=== PATIENT | male | born 1960 | race African-American/Black ===

== ENCOUNTER 2019-05-28 14:02 | Inpatient (IN) | payer OTHER ==
[~2019-05-28] VITALS: Ht 180.3 cm; Wt 135.2 kg
[2019-05-28] MEDS ORDERED: SODIUM CHLORIDE 0.9% 1,000 ML IV ONE ×3 (14:25→18:45)
[2019-05-28] MEDS ORDERED: ONDANSETRON HCL 4MG/2ML INJ IV STA (14:25)
[2019-05-28 14:55] LABS: HEMATOCRIT. 32.1 % (42.0-52.0); HEMOGLOBIN. 10.8 g/dL (14.0-18.0); MEAN CORPUSCULAR HEMOGLOBIN 37.3 pg (28.0-32.0); MEAN CORPUSCULAR VOLUME 110.7 fL (80.0-94.0); MEAN PLATELET VOLUME 10.1 fl (7.4-10.4); PLATELET 83 x1000/uL (130-400); RED CELL DISTRIBUTION WIDTH 16.8 % (11.6-14.6)
[2019-05-28 14:58] LABS: CHLORIDE 100 mEq/L (98-107)
[2019-05-28 15:01] LABS: INR 2.6; PROTHROMBIN TIME 26.1 sec (9.6-11.0)
[2019-05-28 15:02] LABS: ETHANOL BLOOD < 10 mg/dL
[2019-05-28] MEDS ORDERED: DEXT 5% WATER 500 ML IV ONE (15:30)
[2019-05-28 17:17] LABS: PLATELET ESTIMATE MARKEDLY DECREASED
[2019-05-28] MEDS ORDERED: KETOROLAC 15MG/ML VIAL IV ONE (18:00)
[2019-05-28] MEDS ORDERED: PIPERACILLIN/TAZ 3.375G PREMIX 50 ML IV ONE (18:45)
[2019-05-28] MEDS ORDERED: DEXTROSE 10% WATER 500 ML IV ONE (18:45)
[2019-05-28] MEDS ORDERED: VANCOMYCIN 1 G PREMIX 200 ML IV ONE (18:45)
[2019-05-28 19:01] LABS: CLARITY URINE CLOUDY (CLEAR); COLOR URINE DARK YELLOW (YELLOW); KETONES URINE TRACE (NEGATIVE); LEUKOCYTE ESTERASE URINE TRACE (NEGATIVE); NITRITE URINE NEGATIVE (NEGATIVE); OCCULT BLOOD URINE TRACE (NEGATIVE); PROTEIN URINE 2+ (NEGATIVE)
[2019-05-28 19:17] LABS: *AMPHETAMINES SCREEN URINE NEGATIVE (NEGATIVE); *BARBITURATES SCREEN URINE NEGATIVE (NEGATIVE); *BENZODIAZEPINES SCREEN URINE NEGATIVE (NEGATIVE); *COCAINE SCREEN URINE NEGATIVE (NEGATIVE)
[2019-05-28 19:18] LABS: CANNABINOID URINE SCREEN NEGATIVE (NEGATIVE); METHADONE URINE SCREEN NEGATIVE (NEGATIVE); OPIATES URINE SCREEN NEGATIVE (NEGATIVE); PHENCYCLIDINE URINE SCREEN NEGATIVE (NEGATIVE)
[2019-05-28 20:00] VITALS: BP 85/58
[2019-05-28] MEDS ORDERED: DOCUSATE SODIUM 100MG CAPSULE PO PRN (21:00)
[2019-05-28] MEDS ORDERED: PIPERACILLIN/TAZ 3.375G PREMIX 50 ML IV SCH (21:00)
[2019-05-28] MEDS ORDERED: LORAZEPAM 2MG/ML CPJ IV PRN (21:00)
[2019-05-28] MEDS ORDERED: ACETAMINOPHEN 325MG TABLET PO PRN (21:00)
[2019-05-28] MEDS ORDERED: CLONIDINE 0.1MG TABLET PO PRN (21:00)
[2019-05-28] MEDS ORDERED: ONDANSETRON HCL 4MG/2ML INJ IV PRN (21:00)
[2019-05-28] MEDS ORDERED: NA PHOS,M-B/NA PHOS,DI-BA ENEMA 118ML PR PRN (21:00)
[2019-05-28] MEDS ORDERED: HYDROCODONE/ACETAMINOPHEN 5/325MG TABLET PO PRN (21:00)
[2019-05-28] MEDS ORDERED: MAGNESIUM/ALUMINUM HYDROXIDE/SIMETHICONE 30ML UDC PO PRN (21:00)
[2019-05-28] MEDS ORDERED: GUAIFENESIN 200MG/10ML SUGAR FREE UDC PO PRN (21:00)
[2019-05-28] MEDS ORDERED: IPRATROPIUM/ALBUTEROL 0.5-3(2.5)MG/3ML NEB NEB PRN (21:00)
[2019-05-28] MEDS ORDERED: ENOXAPARIN 40MG/0.4ML SYR SUBCUT SCH (21:00)
[2019-05-28] MEDS ORDERED: MORPHINE SULFATE 2 MG/ML CPJ (NOT FOR IM USE) IV PRN (21:00)
[2019-05-28 22:00] VITALS: BP 77/45
[2019-05-28] MEDS ORDERED: METRONIDAZOLE 500 MG PREMIX 100 ML IV SCH (22:00)
[2019-05-28] MEDS ORDERED: DEXT 5%/0.45% NACL 1000ML 1,000 ML IV SCH (23:00)
[2019-05-28] MEDS ORDERED: DEXTROSE 50% WATER 50ML SYRINGE IV PRN (23:00)
[2019-05-29] VITALS (64 sets, daily range): BP systolic 68–124; BP diastolic 20–87
[2019-05-29] MEDS ORDERED: LACT10SO6 PO (00:24)
[2019-05-29] MEDS ORDERED: PROP10TA10 PO (00:24)
[2019-05-29] MEDS ORDERED: IBUP-2030 PO (00:27)
[2019-05-29] MEDS ORDERED: P50 PO (00:27)
[2019-05-29] MEDS ORDERED: ATOR40TA70 PO (00:33)
[2019-05-29] MEDS ORDERED: MYCO500T PO (00:33)
[2019-05-29] MEDS ORDERED: PROP20TA7 PO (00:33)
[2019-05-29] MEDS ORDERED: LEVO25TA7 PO (00:38)
[2019-05-29] MEDS ORDERED: RIFA550T PO (00:38)
[2019-05-29] MEDS ORDERED: BENZ100C86 PO (00:39)
[2019-05-29] MEDS: METRONIDAZOLE 500 MG PREMIX 100 ML IV SCH ×3 (00:52→18:01)
[2019-05-29] MEDS: DEXT 5%/0.9% NACL 1,000 ML IV SCH ×2 (00:52→16:53)
[2019-05-29] MEDS: PIPERACILLIN/TAZOBACTAM 2.25 G in DEXTROSE 5% WATER 50 ML IV SCH ×2 (00:52→09:18)
[2019-05-29 04:15] LABS: HEMATOCRIT. 28.3 % (42.0-52.0); HEMOGLOBIN. 9.7 g/dL (14.0-18.0); MEAN CORPUSCULAR HEMOGLOBIN 37.1 pg (28.0-32.0); MEAN CORPUSCULAR VOLUME 108.1 fL (80.0-94.0); MEAN PLATELET VOLUME 9.7 fl (7.4-10.4); PLATELET 70 x1000/uL (130-400); RED BLOOD CELL COUNT 2.62 mill/uL (4.7-6.1); RED CELL DISTRIBUTION WIDTH 16.6 % (11.6-14.6)
[2019-05-29 04:19] LABS: CHLORIDE 99 mEq/L (98-107); INR 2.9; PROTHROMBIN TIME 28.7 sec (9.6-11.0)
[2019-05-29 04:27] LABS: LDL CHOLESTEROL 43 mg/dL (5-100)
[2019-05-29 04:28] LABS: HDL CHOLESTEROL 7 mg/dL (40-59); T4 FREE 1.23 ng/dL (0.76-1.46)
[2019-05-29] MEDS: BLOOD SUGAR DIAGNOSTIC STRIP TEST SCH ×4 (07:30→21:08)
[2019-05-29] MEDS ORDERED: HALOPERIDOL LACTATE 5MG/ML VIAL IM PRN (07:52)
[2019-05-29] MEDS: INSULIN LISPRO 100 UNITS/ML SUBCUT SCH ×3 (08:00→21:00)
[2019-05-29 08:04] LABS: PLATELET ESTIMATE DECREASED
[2019-05-29] MEDS ORDERED: DIPHENHYDRAMINE 50MG/ML VIAL IV NR (11:45)
[2019-05-29] MEDS: SODIUM CHLORIDE 0.9% 500 ML IV NR ×2 (11:49→13:00)
[2019-05-29 11:53] LABS: CREATINE KINASE 1606 IU/L (39-308)
[2019-05-29] MEDS: PHENYLEPHRINE 10 MG in DEXT 5% WATER 249 ML IV PRN ×2 (13:26→16:13)
[2019-05-29] MEDS: DIPHENHYDRAMINE 50MG/ML VIAL IV PRN ×2 (15:05→22:16)
[2019-05-29] MEDS: CHLORDIAZEPOXIDE 25MG CAPSULE PO SCH ×2 (15:56→21:07)
[2019-05-29 16:12] LABS: CREATINE KINASE MB FRACTION 9.9 ng/mL (0.5-3.6)
[2019-05-29] MEDS: CEFTRIAXONE 1 G PREMIX 50 ML IV SCH (16:55)
[2019-05-29] MEDS ORDERED: POTASSIUM CHLORIDE 20MEQ TABLET SR PO NR (17:00)
[2019-05-29 17:14] LABS: HEPATITIS B SURFACE ANTIGEN NEGATIVE
[2019-05-29 17:43] LABS: HEPATITIS A AB IGM NEGATIVE (NEGATIVE)
[2019-05-29] MEDS ORDERED: PHENYLEPHRINE 20 MG in DEXT 5% WATER 248 ML IV PRN (18:00)
[2019-05-29] MEDS ORDERED: FOLIC ACID 1 MG, THIAMINE HCL 100 MG, MVI, ADULT NO.1 10 ML in DEXTROSE 5% WATER 1,000 ML IV SCH ×4 (18:00)
[2019-05-29] MEDS ORDERED: PHENYLEPHRINE 40 MG in DEXT 5% WATER 496 ML IV PRN (20:00)
[2019-05-29] MEDS ORDERED: NOREPINEPHRINE 16 MG in DEXT 5% WATER 234 ML IV PRN (20:26)
[2019-05-29] MEDS: RIFAXIMIN 550 MG TABLET PO SCH (21:07)
[2019-05-29] MEDS: NYSTATIN POWDER 15GM TOP SCH (21:08)
[2019-05-29] MEDS ORDERED: ALBUMIN HUMAN 12.5GM/50ML (25%) IV NR (21:30)
[2019-05-29 21:52] LABS: BG BASE EXCESS -7.1 mmol/L (-2.0-2.0); BG CARBOXYHEMOGLOBIN 0.3 % (0.5-1.5); BG FRACTION INSPIRED OXYGEN 28; BG HCO3 ACT 17.5 mmol/L (22.0-26.0); BG METHEMOGLOBIN 0.2 % (0.0-1.5); BG OXYHEMOGLOBIN 93.5 % (94.0-97.0); BG PCO2 32.5 mmHg (35.0-45.0); BG PH 7.349 (7.350-7.450); BG PO2 77.7 mmHg (75.0-100.0); BG SAMPLE SITE RIGHT RADIAL; BG TOTAL HEMOGLOBIN 11.8 g/dL (12.0-18.0); BG VENT MODE NASAL CANNULA
[2019-05-29] MEDS: PHENYLEPHRINE 80 MG in DEXT 5% WATER 492 ML IV PRN (23:51)
[2019-05-29 23:54] LABS: CREATINE KINASE MB FRACTION 6.7 ng/mL (0.5-3.6)
[2019-05-30] VITALS (96 sets, daily range): BP systolic 24–153; BP diastolic 13–128
[2019-05-30] MEDS: DEXT 5%/0.9% NACL 1,000 ML IV SCH ×6 (01:23→23:48)
[2019-05-30] MEDS: DIPHENHYDRAMINE 50MG/ML VIAL IV PRN (02:10)
[2019-05-30] MEDS: METRONIDAZOLE 500 MG PREMIX 100 ML IV SCH ×2 (05:16→17:48)
[2019-05-30] MEDS: CHLORDIAZEPOXIDE 25MG CAPSULE PO SCH ×3 (05:16→21:13)
[2019-05-30 06:00] LABS: BASOPHILS % 0.3 % (0.0-2.0); EOSINOPHILS % 1.1 % (0.0-5.0); HEMATOCRIT. 27.9 % (42.0-52.0); HEMOGLOBIN. 9.6 g/dL (14.0-18.0); LYMPHOCYTES % 22.8 % (20.0-50.0); MEAN CORPUSCULAR HEMOGLOBIN 37.3 pg (28.0-32.0); MEAN CORPUSCULAR VOLUME 108.4 fL (80.0-94.0); MEAN PLATELET VOLUME 9.6 fl (7.4-10.4); MONOCYTES % 6.9 % (2.0-8.0); NEUTROPHILS % 68.9 % (40.0-76.0); PLATELET 83 x1000/uL (130-400); RED BLOOD CELL COUNT 2.57 mill/uL (4.7-6.1); RED CELL DISTRIBUTION WIDTH 16.6 % (11.6-14.6)
[2019-05-30] MEDS: PHENYLEPHRINE 80 MG in DEXT 5% WATER 492 ML IV PRN ×2 (06:10→15:19)
[2019-05-30] MEDS: INSULIN LISPRO 100 UNITS/ML SUBCUT SCH ×4 (06:21→21:00)
[2019-05-30] MEDS: BLOOD SUGAR DIAGNOSTIC STRIP TEST SCH ×4 (06:21→21:14)
[2019-05-30 06:38] LABS: CREATINE KINASE MB FRACTION 5.3 ng/mL (0.5-3.6)
[2019-05-30 08:11] LABS: BG BASE EXCESS -8.7 mmol/L (-2.0-2.0); BG CARBOXYHEMOGLOBIN 0.3 % (0.5-1.5); BG DEOXYHEMOGLOBIN 6.5 % (0.0-5.0); BG FRACTION INSPIRED OXYGEN 36; BG HCO3 ACT 15.8 mmol/L (22.0-26.0); BG METHEMOGLOBIN 0.2 % (0.0-1.5); BG OXYGEN SATURATION 93.5 % (92.0-98.5); BG PCO2 29.3 mmHg (35.0-45.0); BG PH 7.349 (7.350-7.450); BG PO2 78.4 mmHg (75.0-100.0); BG SAMPLE SITE RIGHT RADIAL; BG TOTAL HEMOGLOBIN 10.5 g/dL (12.0-18.0); BG VENT MODE NASAL CANNULA
[2019-05-30] MEDS: NYSTATIN POWDER 15GM TOP SCH ×2 (08:52→21:13)
[2019-05-30] MEDS: RIFAXIMIN 550 MG TABLET PO SCH ×2 (08:52→21:13)
[2019-05-30] MEDS ORDERED: KCL 20MEQ/100ML PREMIX 100 ML IV NR (10:00)
[2019-05-30] MEDS: FOLIC ACID/VITAMIN B COMP W-C TABLET PO SCH (15:30)
[2019-05-30] MEDS ORDERED: LIDOCAINE HCL/PF 1% 2ML VIAL ONE (16:01)
[2019-05-30] MEDS: MULTIVITAMINS,THER W-MINERALS TABLET PO SCH (16:34)
[2019-05-30] MEDS: THIAMINE HCL 100MG TABLET PO SCH (16:34)
[2019-05-30] MEDS: CEFTRIAXONE 1 G PREMIX 50 ML IV SCH (16:35)
[2019-05-31] VITALS (96 sets, daily range): BP systolic 69–159; BP diastolic 22–99
[2019-05-31] MEDS: PHENYLEPHRINE 80 MG in DEXT 5% WATER 492 ML IV PRN ×2 (00:02→13:03)
[2019-05-31] MEDS: DIPHENHYDRAMINE 50MG/ML VIAL IV PRN (00:38)
[2019-05-31] MEDS: METRONIDAZOLE 500 MG PREMIX 100 ML IV SCH ×2 (05:45→18:24)
[2019-05-31] MEDS: CHLORDIAZEPOXIDE 25MG CAPSULE PO SCH (05:46)
[2019-05-31] MEDS: BLOOD SUGAR DIAGNOSTIC STRIP TEST SCH ×4 (05:46→21:10)
[2019-05-31] MEDS: DEXT 5%/0.9% NACL 1,000 ML IV SCH ×3 (06:09→13:13)
[2019-05-31] MEDS: INSULIN LISPRO 100 UNITS/ML SUBCUT SCH ×4 (06:10→21:00)
[2019-05-31 08:36] LABS: HEMATOCRIT 25.4 % (42.0-52.0); HEMOGLOBIN 8.8 g/dL (14.0-18.0)
[2019-05-31] MEDS: THIAMINE HCL 100MG TABLET PO SCH (08:37)
[2019-05-31] MEDS: FOLIC ACID/VITAMIN B COMP W-C TABLET PO SCH (08:37)
[2019-05-31] MEDS: RIFAXIMIN 550 MG TABLET PO SCH ×2 (08:37→20:55)
[2019-05-31] MEDS: MULTIVITAMINS,THER W-MINERALS TABLET PO SCH (08:37)
[2019-05-31] MEDS: NYSTATIN POWDER 15GM TOP SCH ×2 (09:00→21:10)
[2019-05-31] MEDS: PANTOPRAZOLE SODIUM 40 MG/VIAL IV SCH ×2 (12:11→17:34)
[2019-05-31] MEDS: OCTREOTIDE 1,000 MCG in SODIUM CHLORIDE 0.9% 98 ML IV SCH (13:02)
[2019-05-31] MEDS: CITRIC ACID/SODIUM CITRATE SOLN 30ML UDC PO SCH ×2 (13:33→17:00)
[2019-05-31 14:49] LABS: MEAN CORPUSCULAR HEMOGLOBIN 38.4 pg (28.0-32.0); MEAN CORPUSCULAR VOLUME 111.2 fL (80.0-94.0); MEAN PLATELET VOLUME 9.7 fl (7.4-10.4); PLATELET 71 x1000/uL (130-400); RED BLOOD CELL COUNT 1.96 mill/uL (4.7-6.1); RED CELL DISTRIBUTION WIDTH 16.7 % (11.6-14.6)
[2019-05-31 14:51] LABS: INR 2.8
[2019-05-31 14:53] LABS: HEMATOCRIT. 21.8 % (42.0-52.0); HEMOGLOBIN. 7.5 g/dL (14.0-18.0)
[2019-05-31 15:12] LABS: PLATELET ESTIMATE DECREASED
[2019-05-31] MEDS: LACTULOSE 300 ML in WATER FOR IRRIGATION,STERILE 700 ML IR SCH (17:00)
[2019-05-31] MEDS: CEFTRIAXONE 1 G PREMIX 50 ML IV SCH (17:45)
[2019-06-01] VITALS (119 sets, daily range): BP systolic 64–185; BP diastolic 22–103
[2019-06-01] MEDS: PHENYLEPHRINE 80 MG in DEXT 5% WATER 492 ML IV PRN ×2 (00:39→14:27)
[2019-06-01 05:41] LABS: MEAN CORPUSCULAR HEMOGLOBIN 38.1 pg (28.0-32.0); MEAN CORPUSCULAR VOLUME 110.4 fL (80.0-94.0); MEAN PLATELET VOLUME 9.7 fl (7.4-10.4); PLATELET 70 x1000/uL (130-400); RED CELL DISTRIBUTION WIDTH 16.6 % (11.6-14.6)
[2019-06-01] MEDS: BLOOD SUGAR DIAGNOSTIC STRIP TEST SCH ×4 (06:03→20:54)
[2019-06-01] MEDS: INSULIN LISPRO 100 UNITS/ML SUBCUT SCH ×4 (06:04→20:54)
[2019-06-01] MEDS: DEXT 5%/0.9% NACL 1,000 ML IV SCH ×4 (06:10→23:57)
[2019-06-01] MEDS: METRONIDAZOLE 500 MG PREMIX 100 ML IV SCH ×2 (06:10→18:24)
[2019-06-01 06:35] LABS: HEMOGLOBIN. 6.1 g/dL (14.0-18.0)
[2019-06-01 06:36] LABS: HEMATOCRIT. 17.7 % (42.0-52.0)
[2019-06-01] MEDS: CITRIC ACID/SODIUM CITRATE SOLN 30ML UDC PO SCH ×3 (08:54→17:00)
[2019-06-01] MEDS: RIFAXIMIN 550 MG TABLET PO SCH ×2 (08:54→20:13)
[2019-06-01] MEDS: LACTULOSE 300 ML in WATER FOR IRRIGATION,STERILE 700 ML IR SCH (09:00)
[2019-06-01] MEDS: NYSTATIN POWDER 15GM TOP SCH ×2 (09:00→21:12)
[2019-06-01] MEDS: OCTREOTIDE 1,000 MCG in SODIUM CHLORIDE 0.9% 98 ML IV SCH (09:01)
[2019-06-01] MEDS: PANTOPRAZOLE SODIUM 40 MG/VIAL IV SCH ×2 (09:04→17:45)
[2019-06-01 10:14] LABS: NUCLEATED RED BLOOD CELLS 2 /100 WBC; PLATELET ESTIMATE DECREASED
[2019-06-01] MEDS ORDERED: PHYTONADIONE 10MG/ML AMP SUBCUT ONE (10:15)
[2019-06-01] MEDS ORDERED: VASOPRESSIN 10 UNIT in SODIUM CHLORIDE 0.9% 99.5 ML IV PRN (10:15)
[2019-06-01] MEDS ORDERED: SODIUM CHLORIDE 0.9% 10ML VIAL ONE (10:48)
[2019-06-01] MEDS ORDERED: VECURONIUM BROMIDE 10 MG/VIAL IV ONE (10:48)
[2019-06-01] MEDS ORDERED: ETOMIDATE 2MG/ML 10ML VIAL IV ONE (10:48)
[2019-06-01 11:15] LABS: BG BASE EXCESS -12.3 mmol/L (-2.0-2.0); BG CARBOXYHEMOGLOBIN 0.8 % (0.5-1.5); BG DEOXYHEMOGLOBIN 0.4 % (0.0-5.0); BG FRACTION INSPIRED OXYGEN 100; BG HCO3 ACT 14.4 mmol/L (22.0-26.0); BG METHEMOGLOBIN 0.5 % (0.0-1.5); BG OXYGEN SATURATION 99.6 % (92.0-98.5); BG OXYHEMOGLOBIN 98.3 % (94.0-97.0); BG PCO2 36.3 mmHg (35.0-45.0); BG PH 7.215 (7.350-7.450); BG PO2 278.6 mmHg (75.0-100.0); BG SAMPLE SITE RIGHT RADIAL; BG TIDAL VOLUME(mL) 500 mL; BG TOTAL HEMOGLOBIN 6.4 g/dL (12.0-18.0); BG VENT MODE VENT - A/C; BG VENT RATE 16 set
[2019-06-01] MEDS ORDERED: SODIUM BICARBONATE 8.4% 1 MEQ/ML 50ML SYR IV SCH (11:20)
[2019-06-01] MEDS: IPRATROPIUM BROMIDE (0.02%) 0.5MG/2.5ML NEB HHN SCH ×3 (11:36→20:38)
[2019-06-01] MEDS: FENTANYL CITRATE/PF 500 MCG in SODIUM CHLORIDE 0.9% 40 ML IV PRN ×3 (12:48→23:57)
[2019-06-01] MEDS ORDERED: MIDAZOLAM HCL 5 MG/5 ML VIAL ONE (15:20)
[2019-06-01] MEDS ORDERED: SIMETHICONE 40 MG/0.6 ML 30ML ONE (15:20)
[2019-06-01] MEDS ORDERED: FENTANYL CITRATE/PF 50MCG/ML 2ML VIAL ONE (15:21)
[2019-06-01] MEDS: CEFTRIAXONE 1 G PREMIX 50 ML IV SCH (18:13)
[2019-06-01 19:38] LABS: HEMATOCRIT 26.9 % (42.0-52.0)
[2019-06-02] VITALS (95 sets, daily range): BP systolic 91–117; BP diastolic 48–68
[2019-06-02] MEDS: IPRATROPIUM BROMIDE (0.02%) 0.5MG/2.5ML NEB HHN SCH ×4 (02:02→20:00)
[2019-06-02] MEDS: METRONIDAZOLE 500 MG PREMIX 100 ML IV SCH ×2 (05:55→17:38)
[2019-06-02] MEDS: BLOOD SUGAR DIAGNOSTIC STRIP TEST SCH ×4 (05:55→20:42)
[2019-06-02] MEDS: INSULIN LISPRO 100 UNITS/ML SUBCUT SCH ×4 (06:07→20:51)
[2019-06-02] MEDS: DEXT 5%/0.9% NACL 1,000 ML IV SCH ×2 (06:15→10:09)
[2019-06-02] MEDS: OCTREOTIDE 1,000 MCG in SODIUM CHLORIDE 0.9% 98 ML IV SCH (07:33)
[2019-06-02] MEDS: PHENYLEPHRINE 80 MG in DEXT 5% WATER 492 ML IV PRN (07:36)
[2019-06-02] MEDS: RIFAXIMIN 550 MG TABLET PO SCH ×2 (08:25→20:11)
[2019-06-02] MEDS: LACTULOSE 300 ML in WATER FOR IRRIGATION,STERILE 700 ML IR SCH (08:26)
[2019-06-02] MEDS: CITRIC ACID/SODIUM CITRATE SOLN 30ML UDC PO SCH ×3 (08:27→17:00)
[2019-06-02] MEDS: PANTOPRAZOLE SODIUM 40 MG/VIAL IV SCH ×2 (08:27→17:38)
[2019-06-02 08:36] LABS: BG BASE EXCESS -9.8 mmol/L (-2.0-2.0); BG CARBOXYHEMOGLOBIN 1.2 % (0.5-1.5); BG FRACTION INSPIRED OXYGEN 40; BG HCO3 ACT 14.8 mmol/L (22.0-26.0); BG METHEMOGLOBIN 0.3 % (0.0-1.5); BG OXYGEN SATURATION 95.9 % (92.0-98.5); BG OXYHEMOGLOBIN 94.5 % (94.0-97.0); BG PCO2 27.5 mmHg (35.0-45.0); BG PH 7.349 (7.350-7.450); BG PO2 91.5 mmHg (75.0-100.0); BG SAMPLE SITE RIGHT RADIAL; BG TIDAL VOLUME(mL) 500 mL; BG TOTAL HEMOGLOBIN 7.2 g/dL (12.0-18.0); BG VENT MODE VENT - A/C; BG VENT RATE 18 set
[2019-06-02] MEDS: NYSTATIN POWDER 15GM TOP SCH ×2 (10:09→20:43)
[2019-06-02] MEDS: FENTANYL CITRATE/PF 500 MCG in SODIUM CHLORIDE 0.9% 40 ML IV PRN ×2 (10:10→20:42)
[2019-06-02 14:23] LABS: HEMATOCRIT. 22.2 % (42.0-52.0); HEMOGLOBIN. 7.9 g/dL (14.0-18.0); MEAN CORPUSCULAR HEMOGLOBIN 37.4 pg (28.0-32.0); MEAN CORPUSCULAR VOLUME 105.2 fL (80.0-94.0); RED BLOOD CELL COUNT 2.11 mill/uL (4.7-6.1); RED CELL DISTRIBUTION WIDTH 21.4 % (11.6-14.6)
[2019-06-02 16:20] LABS: MEAN PLATELET VOLUME 9.6 fl (7.4-10.4); PLATELET 82 x1000/uL (130-400)
[2019-06-02 16:22] LABS: NUCLEATED RED BLOOD CELLS 1 /100 WBC; PLATELET ESTIMATE DECREASED
[2019-06-02] MEDS: CEFTRIAXONE 1 G PREMIX 50 ML IV SCH (17:28)
[2019-06-02 18:33] LABS: CREATINE KINASE 287 IU/L (39-308)
[2019-06-02 23:58] LABS: HEMATOCRIT 25.7 % (42.0-52.0); HEMOGLOBIN 8.9 g/dL (14.0-18.0)
[2019-06-03] VITALS (102 sets, daily range): BP systolic 87–129; BP diastolic 44–64
[2019-06-03] MEDS: IPRATROPIUM BROMIDE (0.02%) 0.5MG/2.5ML NEB HHN SCH ×4 (01:42→20:30)
[2019-06-03] MEDS: OCTREOTIDE 1,000 MCG in SODIUM CHLORIDE 0.9% 98 ML IV SCH (02:32)
[2019-06-03] MEDS: DEXT 5%/0.9% NACL 1,000 ML IV SCH (04:22)
[2019-06-03] MEDS: METRONIDAZOLE 500 MG PREMIX 100 ML IV SCH ×2 (05:09→17:12)
[2019-06-03 05:43] LABS: BASOPHILS % 0.4 % (0.0-2.0); HEMATOCRIT. 21.2 % (42.0-52.0); HEMOGLOBIN. 7.4 g/dL (14.0-18.0); LYMPHOCYTES % 23.2 % (20.0-50.0); MEAN CORPUSCULAR HEMOGLOBIN 36.8 pg (28.0-32.0); MEAN CORPUSCULAR VOLUME 105.5 fL (80.0-94.0); MONOCYTES % 10.6 % (2.0-8.0); NEUTROPHILS % 64.8 % (40.0-76.0); RED BLOOD CELL COUNT 2.01 mill/uL (4.7-6.1); RED CELL DISTRIBUTION WIDTH 21.7 % (11.6-14.6)
[2019-06-03] MEDS: BLOOD SUGAR DIAGNOSTIC STRIP TEST SCH ×4 (05:47→22:18)
[2019-06-03 05:54] LABS: PHOSPHORUS 5.2 mg/dL (2.5-4.9)
[2019-06-03] MEDS: INSULIN LISPRO 100 UNITS/ML SUBCUT SCH ×4 (06:53→21:00)
[2019-06-03 07:37] LABS: PLATELET 90 x1000/uL (130-400)
[2019-06-03] MEDS: SODIUM BICARBONATE 100 MEQ in DEXTROSE 5% WATER 1,000 ML IV SCH (07:55)
[2019-06-03] MEDS: FENTANYL CITRATE/PF 500 MCG in SODIUM CHLORIDE 0.9% 40 ML IV PRN ×3 (07:56→22:28)
[2019-06-03 08:20] LABS: BG BASE EXCESS -12.1 mmol/L (-2.0-2.0); BG DEOXYHEMOGLOBIN 4.2 % (0.0-5.0); BG FRACTION INSPIRED OXYGEN 40; BG HCO3 ACT 13.6 mmol/L (22.0-26.0); BG METHEMOGLOBIN 0.3 % (0.0-1.5); BG OXYGEN SATURATION 95.7 % (92.0-98.5); BG OXYHEMOGLOBIN 94.5 % (94.0-97.0); BG PH 7.275 (7.350-7.450); BG PO2 88.9 mmHg (75.0-100.0); BG SAMPLE SITE RIGHT RADIAL; BG TIDAL VOLUME(mL) 500 mL; BG TOTAL HEMOGLOBIN 7.6 g/dL (12.0-18.0); BG VENT MODE VENT - A/C; BG VENT RATE 18 set
[2019-06-03] MEDS: RIFAXIMIN 550 MG TABLET PO SCH ×2 (09:00→21:00)
[2019-06-03] MEDS: CITRIC ACID/SODIUM CITRATE SOLN 30ML UDC PO SCH ×3 (09:00→17:00)
[2019-06-03] MEDS: LACTULOSE 300 ML in WATER FOR IRRIGATION,STERILE 700 ML IR SCH (09:11)
[2019-06-03] MEDS: PANTOPRAZOLE SODIUM 40 MG/VIAL IV SCH ×2 (09:11→16:56)
[2019-06-03] MEDS: NYSTATIN POWDER 15GM TOP SCH ×2 (09:12→22:18)
[2019-06-03] MEDS ORDERED: LACTULOSE 300 ML in WATER FOR IRRIGATION,STERILE 700 ML IR PRN (11:45)
[2019-06-03 14:50] LABS: HEMATOCRIT 23.3 % (42.0-52.0)
[2019-06-03] MEDS: CEFTRIAXONE 1 G PREMIX 50 ML IV SCH (16:56)
[2019-06-03] MEDS: POLYVINYL ALCOHOL OPHTH DROPS 15ML BOTHEYE PRN ×2 (16:56→17:11)
[2019-06-03] MEDS ORDERED: MAGNESIUM 2 G PREMIX 50 ML IV NR (20:30)
[2019-06-03 23:45] LABS: HEMATOCRIT 23.6 % (42.0-52.0)
[2019-06-04] VITALS (92 sets, daily range): BP systolic 83–121; BP diastolic 35–71
[2019-06-04] MEDS: OCTREOTIDE 1,000 MCG in SODIUM CHLORIDE 0.9% 98 ML IV SCH ×2 (01:46→21:32)
[2019-06-04] MEDS: SODIUM BICARBONATE 100 MEQ in DEXTROSE 5% WATER 1,000 ML IV SCH (01:46)
[2019-06-04] MEDS: PHENYLEPHRINE 80 MG in DEXT 5% WATER 492 ML IV PRN ×3 (01:47→20:00)
[2019-06-04] MEDS: IPRATROPIUM BROMIDE (0.02%) 0.5MG/2.5ML NEB HHN SCH ×4 (02:18→21:09)
[2019-06-04] MEDS: METRONIDAZOLE 500 MG PREMIX 100 ML IV SCH ×2 (05:24→18:41)
[2019-06-04] MEDS: FENTANYL CITRATE/PF 500 MCG in SODIUM CHLORIDE 0.9% 40 ML IV PRN ×4 (05:25→21:32)
[2019-06-04] MEDS: BLOOD SUGAR DIAGNOSTIC STRIP TEST SCH ×4 (06:13→21:07)
[2019-06-04] MEDS: INSULIN LISPRO 100 UNITS/ML SUBCUT SCH ×4 (06:13→21:00)
[2019-06-04 06:44] LABS: BASOPHILS % 0.8 % (0.0-2.0); EOSINOPHILS % 1.3 % (0.0-5.0); HEMATOCRIT. 22.7 % (42.0-52.0); HEMOGLOBIN. 7.8 g/dL (14.0-18.0); LYMPHOCYTES % 21.4 % (20.0-50.0); MEAN CORPUSCULAR HEMOGLOBIN 35.3 pg (28.0-32.0); MEAN CORPUSCULAR VOLUME 103.2 fL (80.0-94.0); MEAN PLATELET VOLUME 9.6 fl (7.4-10.4); MONOCYTES % 10.4 % (2.0-8.0); NEUTROPHILS % 66.1 % (40.0-76.0); PLATELET 105 x1000/uL (130-400); RED CELL DISTRIBUTION WIDTH 20.3 % (11.6-14.6)
[2019-06-04] MEDS: NOREPINEPHRINE 32 MG in DEXT 5% WATER 468 ML IV PRN (07:09)
[2019-06-04 08:42] LABS: BG BASE EXCESS -11.1 mmol/L (-2.0-2.0); BG CARBOXYHEMOGLOBIN 1.2 % (0.5-1.5); BG DEOXYHEMOGLOBIN 3.3 % (0.0-5.0); BG FRACTION INSPIRED OXYGEN 40; BG HCO3 ACT 14.7 mmol/L (22.0-26.0); BG METHEMOGLOBIN 0.3 % (0.0-1.5); BG OXYGEN SATURATION 96.6 % (92.0-98.5); BG OXYHEMOGLOBIN 95.2 % (94.0-97.0); BG PCO2 32.3 mmHg (35.0-45.0); BG PH 7.275 (7.350-7.450); BG PO2 95.8 mmHg (75.0-100.0); BG SAMPLE SITE RIGHT RADIAL; BG TIDAL VOLUME(mL) 500 mL; BG TOTAL HEMOGLOBIN 7.6 g/dL (12.0-18.0); BG VENT MODE VENT - A/C; BG VENT RATE 22 set
[2019-06-04] MEDS: RIFAXIMIN 550 MG TABLET PO SCH ×2 (09:00→21:00)
[2019-06-04] MEDS: CITRIC ACID/SODIUM CITRATE SOLN 30ML UDC PO SCH (09:00)
[2019-06-04 09:02] LABS: VITAMIN B12 SERUM >2000 pg/mL pg/mL (211-911)
[2019-06-04] MEDS: NYSTATIN POWDER 15GM TOP SCH ×2 (09:33→21:33)
[2019-06-04] MEDS: PANTOPRAZOLE SODIUM 40 MG/VIAL IV SCH ×2 (09:33→18:40)
[2019-06-04 10:18] LABS: INR 2.5; PROTHROMBIN TIME 26.7 sec (9.6-11.0)
[2019-06-04] MEDS ORDERED: PHYTONADIONE 10MG/ML AMP SUBCUT NR (11:00)
[2019-06-04] MEDS: LACTULOSE 300 ML in WATER FOR IRRIGATION,STERILE 700 ML IR SCH (11:43)
[2019-06-04 12:35] LABS: HEMATOCRIT 23.1 % (42.0-52.0); HEMOGLOBIN 7.8 g/dL (14.0-18.0)
[2019-06-04] MEDS: CEFTAZIDIME PENTAHYDRATE 1 G in DEXTROSE 5% WATER 50 ML IV SCH (18:40)
[2019-06-05] VITALS (93 sets, daily range): BP systolic 77–150; BP diastolic 39–137
[2019-06-05] MEDS: FENTANYL CITRATE/PF 500 MCG in SODIUM CHLORIDE 0.9% 40 ML IV PRN ×3 (02:23→22:30)
[2019-06-05] MEDS: IPRATROPIUM BROMIDE (0.02%) 0.5MG/2.5ML NEB HHN SCH ×4 (04:48→20:13)
[2019-06-05 05:43] LABS: BASOPHILS % 0.5 % (0.0-2.0); EOSINOPHILS % 1.2 % (0.0-5.0); LYMPHOCYTES % 18.8 % (20.0-50.0); MEAN CORPUSCULAR HEMOGLOBIN 36.5 pg (28.0-32.0); NEUTROPHILS % 68.5 % (40.0-76.0); RED BLOOD CELL COUNT 2.48 mill/uL (4.7-6.1); RED CELL DISTRIBUTION WIDTH 20.1 % (11.6-14.6)
[2019-06-05] MEDS: METRONIDAZOLE 500 MG PREMIX 100 ML IV SCH ×2 (05:47→18:40)
[2019-06-05] MEDS: PHENYLEPHRINE 80 MG in DEXT 5% WATER 492 ML IV PRN ×2 (05:48→16:03)
[2019-06-05] MEDS: INSULIN LISPRO 100 UNITS/ML SUBCUT SCH ×4 (06:28→21:00)
[2019-06-05] MEDS: BLOOD SUGAR DIAGNOSTIC STRIP TEST SCH ×4 (06:28→21:22)
[2019-06-05] MEDS: RIFAXIMIN 550 MG TABLET PO SCH ×2 (08:12→21:00)
[2019-06-05] MEDS: LACTULOSE 300 ML in WATER FOR IRRIGATION,STERILE 700 ML IR SCH (09:08)
[2019-06-05] MEDS: PANTOPRAZOLE SODIUM 40 MG/VIAL IV SCH ×2 (09:08→18:40)
[2019-06-05] MEDS: NYSTATIN POWDER 15GM TOP SCH ×2 (09:09→21:22)
[2019-06-05 09:28] LABS: BG BASE EXCESS -5.1 mmol/L (-2.0-2.0); BG CARBOXYHEMOGLOBIN 0.6 % (0.5-1.5); BG DEOXYHEMOGLOBIN 5.6 % (0.0-5.0); BG FRACTION INSPIRED OXYGEN 40; BG HCO3 ACT 19.6 mmol/L (22.0-26.0); BG OXYGEN SATURATION 94.4 % (92.0-98.5); BG OXYHEMOGLOBIN 93.8 % (94.0-97.0); BG PH 7.367 (7.350-7.450); BG PO2 75.9 mmHg (75.0-100.0); BG SAMPLE SITE RIGHT RADIAL; BG TIDAL VOLUME(mL) 500 mL; BG TOTAL HEMOGLOBIN 10.1 g/dL (12.0-18.0); BG VENT MODE VENT - A/C; BG VENT RATE 22 set
[2019-06-05] MEDS: DEXTROSE 10% WATER 500 ML IV SCH (10:45)
[2019-06-05 11:10] LABS: PLATELET 102 x1000/uL (130-400)
[2019-06-05] MEDS ORDERED: PHYTONADIONE 10MG/ML AMP SUBCUT SCH (14:30)
[2019-06-05] MEDS: NOREPINEPHRINE 32 MG in DEXT 5% WATER 468 ML IV PRN (16:02)
[2019-06-05] MEDS: OCTREOTIDE 1,000 MCG in SODIUM CHLORIDE 0.9% 98 ML IV SCH (18:40)
[2019-06-05] MEDS: CEFTAZIDIME PENTAHYDRATE 1 G in DEXTROSE 5% WATER 50 ML IV SCH (18:41)
[2019-06-06] VITALS (86 sets, daily range): BP systolic 54–139; BP diastolic 32–76
[2019-06-06] MEDS: PHENYLEPHRINE 80 MG in DEXT 5% WATER 492 ML IV PRN ×2 (01:24→09:56)
[2019-06-06] MEDS: IPRATROPIUM BROMIDE (0.02%) 0.5MG/2.5ML NEB HHN SCH ×3 (02:16→14:30)
[2019-06-06 05:41] LABS: BASOPHILS % 1.1 % (0.0-2.0); EOSINOPHILS % 1.4 % (0.0-5.0); HEMATOCRIT. 24.7 % (42.0-52.0); HEMOGLOBIN. 8.5 g/dL (14.0-18.0); LYMPHOCYTES % 23.8 % (20.0-50.0); MEAN CORPUSCULAR HEMOGLOBIN 36.4 pg (28.0-32.0); MEAN CORPUSCULAR VOLUME 106.2 fL (80.0-94.0); MEAN PLATELET VOLUME 9.3 fl (7.4-10.4); NEUTROPHILS % 65.7 % (40.0-76.0); PLATELET 119 x1000/uL (130-400); RED BLOOD CELL COUNT 2.33 mill/uL (4.7-6.1); RED CELL DISTRIBUTION WIDTH 19.6 % (11.6-14.6)
[2019-06-06] MEDS: FENTANYL CITRATE/PF 500 MCG in SODIUM CHLORIDE 0.9% 40 ML IV PRN (06:07)
[2019-06-06] MEDS: INSULIN LISPRO 100 UNITS/ML SUBCUT SCH ×4 (06:30→21:00)
[2019-06-06] MEDS: BLOOD SUGAR DIAGNOSTIC STRIP TEST SCH ×4 (06:30→21:00)
[2019-06-06] MEDS: RIFAXIMIN 550 MG TABLET PO SCH ×2 (09:00→21:00)
[2019-06-06] MEDS: LACTULOSE 300 ML in WATER FOR IRRIGATION,STERILE 700 ML IR SCH (09:52)
[2019-06-06] MEDS: POLYVINYL ALCOHOL OPHTH DROPS 15ML BOTHEYE PRN (09:53)
[2019-06-06] MEDS: NYSTATIN POWDER 15GM TOP SCH ×2 (09:53→21:00)
[2019-06-06] MEDS: PANTOPRAZOLE SODIUM 40 MG/VIAL IV SCH ×2 (09:54→17:00)
[2019-06-06] MEDS: NOREPINEPHRINE 32 MG in DEXT 5% WATER 468 ML IV PRN (09:55)
[2019-06-06] MEDS: OCTREOTIDE 1,000 MCG in SODIUM CHLORIDE 0.9% 98 ML IV SCH (09:56)
[2019-06-06] MEDS ORDERED: VASOPRESSIN 10 UNIT in SODIUM CHLORIDE 0.9% 99.5 ML IV PRN (10:30)
[2019-06-06] MEDS: DEXTROSE 10% WATER 500 ML IV SCH (11:45)
[2019-06-06 12:42] LABS: BG CARBOXYHEMOGLOBIN 0.7 % (0.5-1.5); BG DEOXYHEMOGLOBIN 3.4 % (0.0-5.0); BG FRACTION INSPIRED OXYGEN 40; BG HCO3 ACT 19.7 mmol/L (22.0-26.0); BG METHEMOGLOBIN 0.3 % (0.0-1.5); BG OXYGEN SATURATION 96.6 % (92.0-98.5); BG OXYHEMOGLOBIN 95.6 % (94.0-97.0); BG PCO2 30.7 mmHg (35.0-45.0); BG PH 7.426 (7.350-7.450); BG PO2 88.3 mmHg (75.0-100.0); BG SAMPLE SITE RIGHT RADIAL; BG TIDAL VOLUME(mL) 500 mL; BG TOTAL HEMOGLOBIN 8.4 g/dL (12.0-18.0); BG VENT MODE VENT - A/C; BG VENT RATE 22 set
[2019-06-06] MEDS: MORPHINE SULFATE 4 MG/ML CPJ (NOT FOR IM USE) IV PRN ×2 (15:57→17:19)
[2019-06-06] MEDS: CEFTAZIDIME PENTAHYDRATE 1 G in DEXTROSE 5% WATER 50 ML IV SCH (17:00)
[2019-06-06] MEDS ORDERED: MORPHINE SULFATE 100 MG in DEXT 5% WATER 90 ML IV PRN (18:30)
[2019-06-07] VITALS (90 sets, daily range): BP systolic 48–74; BP diastolic 26–40
[2019-06-07] MEDS: OCTREOTIDE 1,000 MCG in SODIUM CHLORIDE 0.9% 98 ML IV SCH (04:55)
[2019-06-07] MEDS ORDERED: MORPHINE SULFATE 250 MG in DEXT 5% WATER 250 ML IV PRN (05:00)
[2019-06-07] MEDS: INSULIN LISPRO 100 UNITS/ML SUBCUT SCH (05:27)
[2019-06-07] MEDS: BLOOD SUGAR DIAGNOSTIC STRIP TEST SCH (05:27)
[2019-06-07] MEDS ORDERED: MORPHINE SULFATE 250 MG in DEXT 5% WATER 225 ML IV PRN (06:00)
[2019-06-07 09:09] LABS: FOLATE HEMATOCRIT 26.5 % (37.5-51.0)
[2019-06-07] MEDS ORDERED: LORAZEPAM 2MG/ML CPJ IV PRN (12:30)
[2019-06-07] MEDS ORDERED: HALOPERIDOL LACTATE 5MG/ML VIAL IM PRN (12:30)
[2019-06-07 14:10] LABS: FOLATE RBC 1253 ng/mL (>498)
== END 2019-06-08 01:00 | disposition expired | DRG 870 ==
LOC: ER 14:11 → EDBEDREQ 18:54 → EDBEDREQSVC 18:54 → EDBEDREQTM 18:54 → ENRESERV 19:53 → 5EST 21:42 → MICUNO 05-29 12:41 → 6EST 06-07 23:20
PROVIDERS: ADMIT Internal Medicine; ATTEND Internal Medicine
PROC: 02HV33Z Insertion of Infusion Device into Superior Vena Cava, Percutaneous Approach (ICD-10-PCS; 2019-05-30)
PROC: B548ZZA Ultrasonography of Superior Vena Cava, Guidance (ICD-10-PCS; 2019-05-30)
PROC: 5A1955Z Respiratory Ventilation, Greater than 96 Consecutive Hours (ICD-10-PCS; principal; 2019-06-01)
PROC: 0BH17EZ Insertion of Endotracheal Airway into Trachea, Via Natural or Artificial Opening (ICD-10-PCS; 2019-06-01)
PROC: 30233N1 Transfusion of Nonautologous Red Blood Cells into Peripheral Vein, Percutaneous Approach (ICD-10-PCS; 2019-06-01)
PROC: 0DJ08ZZ Inspection of Upper Intestinal Tract, Via Natural or Artificial Opening Endoscopic (ICD-10-PCS; 2019-06-01)
PROC: 02H633Z Insertion of Infusion Device into Right Atrium, Percutaneous Approach (ICD-10-PCS; 2019-06-04)
PROC: 5A1D70Z Performance of Urinary Filtration, Intermittent, Less than 6 Hours Per Day (ICD-10-PCS; 2019-06-04)
PROC: 5A1D70Z Performance of Urinary Filtration, Intermittent, Less than 6 Hours Per Day (ICD-10-PCS; 2019-06-06)
DX: A41.9 Sepsis, unspecified organism (principal); N17.0 Acute kidney failure with tubular necrosis; N18.6 End stage renal disease; G92 Toxic encephalopathy; J69.0 Pneumonitis due to inhalation of food and vomit; J96.00 Acute respiratory failure, unspecified whether with hypoxia or hypercapnia; R65.21 Severe sepsis with septic shock; K85.90 Acute pancreatitis without necrosis or infection, unspecified; N39.0 Urinary tract infection, site not specified; K80.10 Calculus of gallbladder with chronic cholecystitis without obstruction; M62.82 Rhabdomyolysis; J98.11 Atelectasis; E46 Unspecified protein-calorie malnutrition; E87.1 Hypo-osmolality and hyponatremia; E87.2 Acidosis; I13.11 Hypertensive heart and chronic kidney disease without heart failure, with stage 5 chronic kidney disease, or end stage renal disease; I85.10 Secondary esophageal varices without bleeding; K76.6 Portal hypertension; Z68.41 Body mass index [BMI] 40.0-44.9, adult; K92.2 Gastrointestinal hemorrhage, unspecified; K42.9 Umbilical hernia without obstruction or gangrene; K70.31 Alcoholic cirrhosis of liver with ascites; E87.6 Hypokalemia; D69.6 Thrombocytopenia, unspecified; E86.0 Dehydration; I25.10 Atherosclerotic heart disease of native coronary artery without angina pectoris; F17.210 Nicotine dependence, cigarettes, uncomplicated; D50.0 Iron deficiency anemia secondary to blood loss (chronic); E16.2 Hypoglycemia, unspecified; K44.9 Diaphragmatic hernia without obstruction or gangrene; K31.89 Other diseases of stomach and duodenum; E83.51 Hypocalcemia; Z51.5 Encounter for palliative care; Z66 Do not resuscitate; K70.40 Alcoholic hepatic failure without coma; K26.7 Chronic duodenal ulcer without hemorrhage or perforation; D75.89 Other specified diseases of blood and blood-forming organs; Z88.0 Allergy status to penicillin; Z91.011 Allergy to milk products; Z99.2 Dependence on renal dialysis; Z91.19 Patient's noncompliance with other medical treatment and regimen; Z87.01 Personal history of pneumonia (recurrent); Z86.73 Personal history of transient ischemic attack (TIA), and cerebral infarction without residual deficits; Z79.899 Other long term (current) drug therapy
CPT/HCPCS: 31500; 36415; 36600; 70551; 71045; 74176; 76700; 76937; 80048; 80053; 80061; 80076; 80305; 80320; 81003; 82140; 82270; 82375; 82550; 82553; 82575; 82607; 82705; 82747; 82805; 82962; 83036; 83605; 83735; 83880; 84100; 84134; 84145; 84439; 84443; 84484; 85014; 85018; 85025; 85379; 86705; 86709; 86803; 86850; 86900; 86920; 87015; 87045; 87070; 87340; 87427; 87449; 89055; 93005; 93306; 93970; 94002; 94003; 94640; 99291; C1725; C9113; J0696; J0713; J1200; J1630; J1885; J2250; J2270; J2354; J2370; J2405; J2543; J3010; J3411; J3430; J3475; J3480; J3490; J7030; J7042; J7050; J7060; J7070; P9016; P9047; A4315; G0480